=== PATIENT | female | born 1930 | race African-American/Black ===

== ENCOUNTER 2018-04-02 19:16 | Emergency (ER) | payer OTHER ==
[~2018-04-02] VITALS: Ht 162.6 cm; Wt 36.9 kg
[2018-04-02] MEDS ORDERED: ASPI81 PO (19:23)
[2018-04-02] MEDS ORDERED: ANXIETY MED PO (19:23)
[2018-04-02] MEDS ORDERED: HTN MED PO (19:23)
[2018-04-02] MEDS ORDERED: ONDANSETRON HCL 4 MG/2 ML VIAL IVP ONE (19:30)
[2018-04-02] MEDS ORDERED: MORPHINE SULFATE 4 MG/ML SYRINGE IVP ONE (19:30)
[2018-04-03] MEDS ORDERED: LISINOPRIL 10 MG TABLET PO ONE (00:30)
[2018-04-03 00:45] VITALS: BP 181/99
== END 2018-04-03 01:12 | disposition short-term general hospital (02) ==
LOC: EMS 19:17
DX: S72.142A Displaced intertrochanteric fracture of left femur, initial encounter for closed fracture (principal); S01.01XA Laceration without foreign body of scalp, initial encounter; I10 Essential (primary) hypertension; W01.0XXA Fall on same level from slipping, tripping and stumbling without subsequent striking against object, initial encounter; Y93.89 Activity, other specified; Y92.89 Other specified places as the place of occurrence of the external cause; Y99.8 Other external cause status
CPT/HCPCS: 12001; 70450; 72125; 73503; 73552; 96374; 96375; 99284; J2270; J2405